=== PATIENT | female | born 1990 | race Caucasian/White ===

== ENCOUNTER 2016-10-23 00:57 | Observation (INO) | payer OTHER ==
[2016-10-23] MEDS ORDERED: ONDANSETRON 4 MG/2 ML VIAL ONE ×2 (02:11→06:53)
[2016-10-23] MEDS ORDERED: HYDROmorphONE/DILAUDID 1 MG/ML SYR ONE ×2 (02:11→04:52)
[2016-10-23 02:16] LABS: % IMMATURE GRANULYOCYTES 0.4 % (0.0-1.1); ABSOLUTE IMMATURE GRANULOCYTES 0.07 10^3/uL (0.00-0.10); ADD DIFF? NO; ADD MORPH? NO; ADD SCAN? NO; ATYPICAL LYMPHOCYTE FLAG 10 (0-99); FRAGMENT RBC FLAG 0 (0-99); HEMOGLOBIN 13.4 g/dL (12.6-16.3); LEFT SHIFT FLG 10 (0-99); LIPEMIA HEMOLYSIS FLAG 90 (0-99); MEAN CELL HEMOGLOBIN 29.7 pg (27.9-34.1); MEAN CELL HEMOGLOBIN CONCENTR. 34.4 g/dL (32.4-36.7); MEAN CELL VOLUME 86.5 fL (81.5-99.8); MEAN PLATELET VOLUME 10.4 fL (8.7-11.7); PLATELET CLUMPS FLAG 10 (0-99); PLATELET COUNT 259 10^3/uL (150-400); RED BLOOD CELL COUNT 4.51 10^6/uL (4.18-5.33); RED CELL DISTRIBUTION WIDTH 13.1 % (11.5-15.2)
[2016-10-23 02:21] LABS: ANION GAP 17 mEq/L (8-16); CALCIUM 9.2 mg/dL (8.5-10.4); CARBON DIOXIDE 20 mEq/l (22-31); CHLORIDE 107 mEq/L (97-110); CREATININE 0.7 mg/dL (0.6-1.0); GLOMERULAR FILTRATION RATE > 60; GLUCOSE 94 mg/dL (70-100); SODIUM 144 mEq/L (134-144)
--- NOTE | 2016-10-23 02:25 | EDPHY ---
H & P Stated Complaint: c/o RUQ pain/n/v/d since approx 1500 Time Seen by Provider: 10/23/16 02:09 HPI/ROS: HPI The patient presents with abdominal pain which began with some bloating and cramping of her abdomen at about 2 or 3:00 p.m. today. Her symptoms started slowly and have gotten progressively worse over the course of the evening. She was able to go out, have dinner and have a few drinks, however at about 9 or 10: 00 p.m. her pain became worse. She was unable to sleep and thus has come into the emergency room. The pain is sharp, in her right lower quadrant, radiates throughout her abdomen and is worse with movement. She has had vomiting, a total of 4 episodes. About 10 years ago, she had an episode of abdominal pain which required hospitalization. Her workup sounds to be inconclusive.. REVIEW OF SYSTEMS Constitutional: No fever, no chills. Eyes: No discharge. ENT: No sore throat. Cardiovascular: No chest pain, no palpitations. Respiratory: No cough, no shortness of breath. Gastrointestinal: See HPI Genitourinary: No hematuria. Musculoskeletal: No back pain. Skin: No rashes. Neurological: No headache. PMHx: Healthy Soc Hx: Occasional alcohol use PHYSICAL General Appearance: Alert, appears in pain Eyes: Pupils equal and round no pallor or injection ENT, Mouth: Mucous membranes moist Respiratory: There are no retractions, lungs are clear to auscultation Cardiovascular: Regular rate and rhythm Gastrointestinal: Abdomen is soft with tenderness in the right lower quadrant Neurological: A&O, moves all extremities Skin: Warm and dry, no rashes Musculoskeletal: Neck is supple non tender Extremities: symmetrical, full range of motion Psychiatric: Patient is oriented X 3, there is no agitation Source: Patient Exam Limitations: No limitations - Personal History LMP (Females 10-55): IUD In Place - Medical/Surgical History Hx Asthma: No Hx Chronic Respiratory Disease: No Hx Diabetes: No Hx Cardiac Disease: No Hx Renal Disease: No Hx Cirrhosis: No Hx Alcoholism: No Hx HIV/AIDS: No Hx Splenectomy or Spleen Trauma: No Other PMH: none - Social History Smoking Status: Never smoked Constitutional: Initial Vital Signs Temperature (C) 36.9 C 10/23/16 01:01 Heart Rate 106 H 10/23/16 01:01 Respiratory Rate 18 07/14/17 01:01 Blood Pressure 109/72 10/23/16 01:01 O2 Sat (%) 98 10/23/16 01:01 O2 Delivery Mode Room Air O2 (L/minute) 2 Allergies/Adverse Reactions: No Known Allergies Allergy (Unverified 10/23/16 01:04) Home Medications: Medication Instructions Recorded NK [No Known Home Meds] 10/23/16 Medical Decision Making - Diagnostics Imaging Results: Ultrasound right lower quadrant demonstrates free fluid. Ultrasound pelvic demonstrates small right ovarian follicle, discussed with Dr. Lockwood of Radiology. CT scan abdomen pelvis with IV contrast demonstrates retrocecal acute appendicitis, discussed with Dr. Lockwood of Radiology. Imaging: Discussed imaging studies w/ call center dispatcher Radiologist, I viewed and interpreted images myself Differential Diagnosis: This is a 26-year-old female who is healthy who presents with right-sided lower abdominal pain associated with nausea and vomiting for the last 1 day. Differential diagnosis includes appendicitis, ovarian torsion, ruptured ovarian cyst, colilithiasis. In the emergency room, IV line was established and patient was given Dilaudid and Zofran for pain control. Labs were checked which did reveal a markedly leukocytosis of 18,000. Workup was initiated with ultrasound to spare her radiation. However ultrasound results were inconclusive with 3 fluid seen in the abdomen without appendix visualized. The patient was reassessed, she had persistent abdominal pain and tenderness. Thus, CT scan of abdomen pelvis with IV contrast was performed which did demonstrate acute retrocecal appendicitis. Because of this, the patient was administered Invanz and I consulted with the on -call general surgeon Dr. Monsalve. She came to the emergency room to see the patient and will take her directly to the operating room for further treatment. The patient is aware of the plan. - Data Points Laboratory Results: Laboratory Results 10/23/16 01:30 10/23/16 01:30 10/23/16 10/23/16 10/23/16 01:30 01:30 01:30 WBC RBC Hgb Hct MCV MCH MCHC RDW Plt Count MPV Neut % (Auto) Lymph % (Auto) [place] % (Auto) Eos % (Auto) Baso % (Auto) Nucleat RBC Rel Count Absolute Neuts (auto) Absolute Lymphs (auto) Absolute Monos (auto) Absolute Eos (auto) Absolute Basos (auto) Absolute Nucleated RBC Immature Gran % Immature Gran # Sodium 144 mEq/L mEq/L (134-144) Potassium 4.0 mEq/L mEq/L (3.5-5.2) Chloride 107 mEq/L mEq/L (97-110) Carbon Dioxide 20 mEq/l L mEq/l (22-31) Anion Gap 17 mEq/L H mEq/L (8-16) BUN 13 mg/dL mg/dL (7-23) Creatinine 0.7 mg/dL mg/dL (0.6-1.0) Estimated GFR > 60 Glucose 94 mg/dL mg/dL (70-100) Calcium 9.2 mg/dL mg/dL (8.5-10.4) Beta HCG, Qual NEGATIVE Urine Color YELLOW Urine Appearance CLEAR Urine pH 6.0 (5.0-7.5) Ur Specific [place] 1.017 (1.002-1.030) Urine Protein NEGATIVE (NEGATIVE) Urine Ketones TRACE H (NEGATIVE) Urine Blood NEGATIVE (NEGATIVE) Urine Nitrate NEGATIVE (NEGATIVE) Urine Bilirubin NEGATIVE (NEGATIVE) Urine Urobilinogen NEGATIVE EU EU (0.2-1.0) Ur Leukocyte Esterase NEGATIVE (NEGATIVE) Urine Glucose NEGATIVE (NEGATIVE) 10/23/16 01:30 WBC 18.16 10^3/uL H 10^3/uL (3.80-9.50) RBC 4.51 10^6/uL 10^6/uL (4.18-5.33) Hgb 13.4 g/dL g/dL (12.6-16.3) Hct 39.0 % % (38.0-47.0) MCV 86.5 fL fL (81.5-99.8) MCH 29.7 pg pg (27.9-34.1) MCHC 34.4 g/dL g/dL (32.4-36.7) RDW 13.1 % % (11.5-15.2) Plt Count 259 10^3/uL 10^3/uL (150-400) MPV 10.4 fL fL (8.7-11.7) Neut % (Auto) 88.9 % H % (39.3-74.2) Lymph % (Auto) 6.8 % L % (15.0-45.0) Haines % (Auto) 3.6 % L % (4.5-13.0) Eos % (Auto) 0.0 % L % (0.6-7.6) Baso % (Auto) 0.3 % % (0.3-1.7) Nucleat RBC Rel Count 0.0 % % (0.0-0.2) Absolute Neuts (auto) 16.15 10^3/uL H 10^3/uL (1.70-6.50) Absolute Lymphs (auto) 1.23 10^3/uL 10^3/uL (1.00-3.00) Absolute Monos (auto) 0.66 10^3/uL 10^3/uL (0.30-0.80) Absolute Eos (auto) 0.00 10^3/uL L 10^3/uL (0.03-0.40) Absolute Basos (auto) 0.05 10^3/uL 10^3/uL (0.02-0.10) Absolute Nucleated RBC 0.00 10^3/uL 10^3/uL (0-0.01) Immature Gran % 0.4 % % (0.0-1.1) Immature Gran # 0.07 10^3/uL 10^3/uL (0.00-0.10) Sodium Potassium Chloride Carbon Dioxide Anion Gap BUN Creatinine Estimated GFR Glucose Calcium Beta HCG, Qual Urine Color Urine Appearance Urine pH Ur Specific [place] Urine Protein Urine Ketones Urine Blood Urine Nitrate Urine Bilirubin Urine Urobilinogen Ur Leukocyte Esterase Urine Glucose Medications Given: Discontinued Medications Hydromorphone HCl (Dilaudid) 0.5 mg IVP EDNOW ONE Stop: 10/23/16 02:27 Last Admin: 10/23/16 02:20 Dose: 0.5 mg Hydromorphone HCl (Dilaudid) 1 mg IVP EDNOW ONE Stop: 10/23/16 02:50 Last Admin: 10/23/16 02:50 Dose: 1 mg Hydromorphone HCl (Dilaudid) 1 mg IVP EDNOW ONE Stop: 10/23/16 05:00 Last Admin: 10/23/16 05:01 Dose: 1 mg Sodium Chloride (Ns) 1,000 mls @ 0 mls/hr IV ONCE ONE PRN Reason: Wide Open Stop: 10/23/16 02:27 Last Admin: 10/23/16 02:20 Dose: 1,000 mls Sodium Chloride (Ns) 1,000 mls @ 0 mls/hr IV ONCE ONE; Wide Open PRN Reason: Protocol Stop: 10/23/16 04:16 Last Admin: 10/23/16 04:40 Dose: 1,000 mls Ertapenem 1 gm/ Sodium (Chloride) 100 mls @ 200 mls/hr IV EDNOW ONE PRN Reason: Protocol Stop: 10/23/16 05:25 Last Admin: 10/23/16 05:25 Dose: 100 mls Ondansetron HCl (Zofran) 4 mg IVP EDNOW ONE Stop: 10/23/16 02:27 Last Admin: 10/23/16 02:20 Dose: 4 mg Departure - Departure Disposition: [facility] Acute Clinical Impression: Acute appendicitis Qualifiers: Acute appendicitis type: with localized peritonitis Qualified Code(s): K35.3 - Acute appendicitis with localized peritonitis Condition: Fair
[2016-10-23] MEDS ORDERED: NS 1,000 ML IV ONE ×2 (02:26→04:15)
[2016-10-23] MEDS ORDERED: HYDROmorphONE/DILAUDID 1 MG/ML SYR IVP ONE ×3 (02:26→04:59)
[2016-10-23] MEDS ORDERED: ONDANSETRON 4 MG/2 ML VIAL IVP ONE (02:26)
[2016-10-23 02:31] LABS: COLOR YELLOW; LEUKOCYTE ESTERASE,URINE NEGATIVE (NEGATIVE); NITRITE,URINE NEGATIVE (NEGATIVE)
[2016-10-23] MEDS ORDERED: IOPAMIDOL (ISOVUE-300) 100 ML BTL ONE (04:18)
[2016-10-23] MEDS ORDERED: ERTAPENEM 1 GM in NS 100 ML IV ONE (04:56)
--- NOTE | 2016-10-23 05:55 | PDANEPAE ---
ANE History of Present Illness 26 yo for lap elba FAUSTO Past Medical History - Cardiovascular History Hx Hypertension: No Hx Arrhythmias: No Hx Chest Pain: No Hx Coronary Artery / Peripheral Vascular Disease: No Hx CHF / Valvular Disease: No - Pulmonary History Hx COPD: No Hx Asthma/Reactive Airway Disease: No Hx Recent Upper Respiratory Infection: No Hx Oxygen in Use at Home: No Hx Sleep Apnea: No - Endocrine History Hx Diabetes: No Hypothyroid: No Hyperthyroid: No Obesity: no ANE Review of Systems Review of systems is: negative - Exercise capacity METS (RN): 4 METS ANE Patient History - Allergies Allergies/Adverse Reactions: No Known Allergies Allergy (Unverified 10/23/16 01:04) - Home Medications Home medications: home medication list seen and reviewed Home Medications: NK [No Known Home Meds] 10/23/16 [Last Taken Unknown] - NPO status NPO Since - Liquids (Date): 10/22/16 NPO Since - Liquids (Time): 12:00 NPO Since - Solids (Date): 10/22/16 NPO Since - Solids (Time): 12:00 - Anes Hx Anes Hx: no prior problems - Smoking Hx Smoking Status: Never smoked ANE Labs/Vital Signs - Labs Result Diagrams: 10/23/16 01:30 10/23/16 01:30 - Vital Signs Blood Pressure: 111/66 Heart Rate: 75 Respiratory Rate: 16 O2 Sat (%): 98 Weight: 58.967 kg ANE Physical Exam - Airway Neck exam: FROM Mallampati Score: Class 2 Mouth exam: normal dental/mouth exam - Pulmonary Pulmonary: no respiratory distress - Cardiovascular Cardiovascular: regular rate and rhythym - ASA Status ASA Status: I ANE Anesthesia Plan Anesthesia Plan: general endotracheal anesthesia
[2016-10-23] MEDS ORDERED: PROPOFOL/EMULSION 500 MG/50 ML BOTTLE IV ONE (06:02)
[2016-10-23] MEDS ORDERED: fentaNYL 100 MCG/2 ML INJ ONE ×3 (06:02→07:50)
[2016-10-23] MEDS ORDERED: ROCURONIUM 50 MG/5 ML VIAL ONE (06:03)
[2016-10-23] MEDS ORDERED: PROMETHAZINE HCL 25 MG/ML INJ IVP PRN (06:33)
[2016-10-23] MEDS ORDERED: fentaNYL 100 MCG/2 ML INJ IVP PRN ×2 (06:33)
[2016-10-23] MEDS ORDERED: MEPERIDINE 25 MG/ML SYR IVP PRN (06:33)
[2016-10-23] MEDS ORDERED: ONDANSETRON 4 MG/2 ML VIAL IVP PRN ×2 (06:33→07:23)
[2016-10-23] MEDS ORDERED: NALOXONE HCL 0.4 MG/ML INJ IVP PRN (06:33)
[2016-10-23] MEDS ORDERED: HYDROmorphONE/DILAUDID 1 MG/ML SYR IVP PRN ×2 (06:33→07:24)
--- NOTE | 2016-10-23 06:35 | GHP ---
[f rep st] HISTORY AND PHYSICAL DATE OF ADMISSION: 10/23/2016 CHIEF COMPLAINT: Acute appendicitis. HISTORY OF PRESENT ILLNESS: The patient is a 26-year-old woman who developed abdominal pain. It be came so severe, she presented to the emergency room in the middle of the night. White count was 180 00. Ultrasound was obtained which was nondiagnostic and ultimately she had a CT scan performed which showed acute retrocecal appendicitis with an appendicolith. Her pain is located all over her abdom en, but most prominently in the right lower quadrant. She denies fevers. She does have nausea. PAST MEDICAL HISTORY: None. PAST SURGICAL HISTORY: Tonsillectomy. SOCIAL HISTORY: She works as a teacher music. She denies tobacco use. She uses alcohol on [facility]. She is . FAMILY HISTORY: Noncontributory to appendicitis. REVIEW OF SYSTEMS: 10-point review of systems negative except per HPI. PHYSICAL EXAMINATION: VITAL SIGNS: 36.9, 75, 111/66, 16, 98% on room air. GENERAL: Pleasant, wel l-nourished, well-groomed woman, appears uncomfortable sitting on gurney, at bedside. HEENT : Normocephalic, no gross hearing deficits. Mucous membranes moist. Pupils equal and round. No s cleral icterus. LUNGS: Clear to auscultation bilaterally. Shallow work of breathing. CARDIAC: Re gular rate. ABDOMEN: Bowel sounds hypoactive. It is warm to the touch. It is diffusely tender. It is distended. : Deferred. SKIN: Warm and dry. NEURO: Grossly intact. PSYCH: Mood and af fect normal. Results reviewed per HPI. IMPRESSION AND PLAN: The patient is a 26-year-old woman with acute appendicitis. I will take her t o the operating room for a laparoscopic appendectomy. The risks and benefits, including, but not li mited to, stroke, heart attack, , blood clots, infection, bleeding, damage to surrounding struc tures, were all discussed. She had her questions answered to her satisfaction. She received Invanz in the ER. /[id number]/MODL
[2016-10-23] MEDS ORDERED: SUGAMMADEX SODIUM 200 MG/2 ML VIAL IVP ONE (06:53)
--- NOTE | 2016-10-23 07:14 | POSTANESTH ---
Post Anesthetic Evaluation Cardiovascular Status: Normal, Stable Respiratory Status: Tx Decrease in SpO2 Level of Consciousness/Mental Status: Can Participate in Eval Pain Control: Adequate, Prn Tx Ordered Nausea/Vomiting Control: Adequate, Prn Tx Ordered Complications Possibly Related to Anesthesia: None Noted
[2016-10-23] MEDS ORDERED: ACETAMINOPHEN 325 MG TAB PO PRN (07:23)
[2016-10-23] MEDS ORDERED: ONDANSETRON DISINTEGRATING 4 MG TAB PO PRN (07:23)
[2016-10-23] MEDS ORDERED: diphenhydrAMINE 25 MG CAP PO PRN (07:23)
--- NOTE | 2016-10-23 07:26 | POSTOPPROG ---
Post Op Note Date of Operation: 10/23/16 Surgeon: Paula Monsalve Anesthesiologist: daniel Anesthesia: GET(General Endotracheal) Pre-op Diagnosis: acute appendicitis Post-op Diagnosis: same Indication: 26yo F abd pain, acute appe on CT Procedure: lap appy, patial cecectomy Inf/Abcess present in the surg proc area at time of surgery?: Yes Depth: Organ Space EBL: Minimal
[2016-10-23 09:07] VITALS: RESP 16
[2016-10-23] MEDS: HYDROCODONE/APAP 5/325 TAB PO PRN ×2 (09:28→13:35)
[2016-10-23] MEDS ORDERED: IBUPROFEN 800 MG TAB PO SCH (14:00)
[2016-10-23 16:14] VITALS: TEMP 98.5
--- NOTE | 2016-10-23 16:25 | GOP ---
[f rep st] OPERATIVE REPORT DATE OF OPERATION: 10/23/2016 SURGEON: Paula Monsalve MD ANESTHESIA: General. ANESTHESIOLOGIST: Oskar Sanford MD PREOPERATIVE DIAGNOSIS: Acute appendicitis. POSTOPERATIVE DIAGNOSIS: Acute appendicitis. PROCEDURE PERFORMED: Laparoscopic appendectomy and partial cecectomy. FINDINGS: The appendix was completely retrocecal. There was a distinct white spot on the cecum on the back wall that I was concerned was scatter from the Harmonic. SPECIMENS: Appendix, portion of cecum. ESTIMATED BLOOD LOSS: 5 cc. INDICATIONS: The patient is a 26-year-old woman who presented with acute appendicitis, it was retro cecal with an appendicolith. DESCRIPTION OF PROCEDURE: The patient was brought into the operating room, placed supine on the tab le, and general anesthesia was administered. Her abdomen was prepped and draped in usual sterile fa shion. I infiltrated all sites with 0.5% Marcaine prior to making incisions. I made an incision at her umbilicus. I elevated it. I inserted the Veress needle. It passed the hanging drop test. He r abdomen insufflated easily to a pressure of 15 mmHg. I placed a 5 mm trocar with a camera at the site. There were no injuries from Veress needle placement. Under direct vision I placed a 5 mm sup rapubic trocar and a 10 mm trocar in the left lower quadrant. I explored her abdomen. Her appendix was completely retrocecal. I was able to gently roll the cecum over and there was a lot of edema i n this area. I created a window in the mesoappendix and divided the mesoappendix with the Harmonic Scalpel, staying close to the appendix. I then divided the base of the appendix with an Endo-MARITO 45 white load. I placed the appendix in an EndoCatch bag and retrieved it via the 10 mm trocar. I th en explored her abdomen. There was a distinct white judy on the posterior wall of the cecum. I was concerned that this could be scattered from the Harmonic. I washed it and it did not change, so I grasped it with a grasper and I took an Endo-MARITO 45 blue load and tangentially excised this area. T his was sent to Pathology for permanent. Hemostasis was achieved at the staple lines. Abdomen insp ected. No other injuries or issues were observed. Ports removed under direct vision. The abdomen allowed to desufflate. Fascia closed at the 10 mm trocar site with 0 Vicryl. Skin closed with 4-0 Monocryl. Dermabond applied. She was awakened in the operating room, extubated, transferred to PAC U in stable condition. I spoke with her by phone after the case. /[id number]/MODL
[2016-10-23 16:41] VITALS: BP 101/56; PULSE 79; O2SAT 98
--- NOTE | 2016-10-23 17:18 | SOAPPROG ---
SOAP Progress Note Assessment/Plan: Assessment: 26 yo s/p lap appy feeling much improved passing flatus DC home S: No nausea Incisions cdi Plan: 10/23/16 17:18 Objective: Vital Signs Temp Pulse Resp BP Pulse Ox 36.9 C 79 16 101/56 L 98 10/23/16 15:51 10/23/16 15:51 10/23/16 15:51 10/23/16 15:51 10/23/16 15:51 10/22/16 10/23/16 10/24/16 05:59 05:59 05:59 Intake Total 2100 1820 Output Total 530 Balance 2100 1290 ICD10 Worksheet Patient Problems: Problems Problem Status Onset Acute appendicitis Acute
== END 2016-10-23 18:25 | disposition home or self-care (01) ==
LOC: F3N 08:06
PROVIDERS: ADMIT Surgery; ATTEND Surgery
PROC: 0DTJ4ZZ Resection of Appendix, Percutaneous Endoscopic Approach (ICD-10-PCS; principal; 2016-10-23 06:00)
DX: K35.3 Acute appendicitis with localized peritonitis (principal)
CPT/HCPCS: 44970; 74177; 76705; 76856; G0378; 96365; J1170; J1335; J2405; J2704; J3010; Q9967

== ENCOUNTER → 2017-07-19 | Outpatient (CLI) | payer OTHER | LOC: FIMAGING 12:16 | PROVIDERS: ATTEND Advanced Practice Midwife | DX: Z34.02 Encounter for supervision of normal first pregnancy, second trimester (principal); Z3A.20 20 weeks gestation of pregnancy ==